=== PATIENT | male | born 1985 | race Caucasian/White ===

== ENCOUNTER 2017-01-04 09:49 | Emergency (ER) | payer SELFPAY ==
[~2017-01-04] VITALS: Ht 182.9 cm; Wt 121.0 kg
[2017-01-04 11:08] LABS: HEMATOCRIT 49.3 % (39.0-50.0); HEMOGLOBIN 16.3 g/dl (14.0-18.0); IMMATURE GRANULOCYTES 0.6 % (0.0-1.0); MEAN CELL VOLUME 88.4 fL CALC (80.0-100.0); MEAN CORPUSCULAR HGB 29.2 pG CALC (26.0-32.0); MEAN CORPUSCULAR HGB CONC 33.1 g/L CALC (32.0-36.0); NEUT# 6.05 thou/uL (1.82-7.42); RED BLOOD COUNT 5.58 mill/uL (4.70-6.10); RED CELL DISTRI WIDTH 12.2 % (11.5-15.5)
[2017-01-04 11:23] LABS: ALKALINE PHOSPHATASE 58 u/l (38-126); AMYLASE 41 u/l (30-110); ANION GAP 15 (6-22 (CALC)); BILIRUBIN, TOTAL 0.5 mg/dL (0.0-1.4); BUN 9 mg/dL (9-20); BUN/CREATININE RATIO 12 (12-20 (CALC)); CALCIUM 9.5 mg/dL (8.4-10.2); CARBON DIOXIDE 25 mmol/l (22-30); CHLORIDE 108 mmol/l (95-108); CREATININE 0.8 mg/dL (0.7-1.3); GFR > 60 ML/MIN (>=60 (CALC)); GFR FOR AFR.AMER. > 60 ML/MIN (>=60 (CALC)); GLUCOSE 96 mg/dL (75-110); LIPASE 100 u/l (23-300); POTASSIUM 4.5 mmol/l (3.5-5.1); SGOT/AST 22 u/l (17-59); SGPT/ALT 39 u/l (21-72); SODIUM 144 mmol/l (137-146); TOTAL PROTEIN 6.8 g/dL (6.3-8.2)
[2017-01-04 13:12] LABS: URINE BILIRUBIN - DIPSTICK NEGATIVE (NEGATIVE); URINE BLOOD DIPSTICK TRACE-LYSED (NEGATIVE); URINE COLOR YELLOW; URINE GLUCOSE - DIPSTICK NEGATIVE (NEGATIVE); URINE KETONE NEGATIVE (NEGATIVE); URINE LEUK ESTERASE NEGATIVE (NEGATIVE); URINE NITRITE - DIPSTICK NEGATIVE (Negative); URINE PROTEIN - DIPSTICK NEGATIVE (NEG-TRACE); URINE SPECIFIC GRAVITY 1.025; URINE UROBILINOGEN - DIPSTICK 0.2 E.U./dL (0.2)
[2017-01-04 13:13] LABS: URINE CLARITY CLEAR
[2017-01-04] MEDS ORDERED: ZOFRAN ODT4 MG PO (13:24)
[2017-01-04 13:42] VITALS: BP 189/91
== END 2017-01-04 13:56 | disposition home or self-care (01) | DRG 392 ==
LOC: ED 09:49
PROVIDERS: Emergency Medicine
DX: R10.31 Right lower quadrant pain (principal); R11.2 Nausea with vomiting, unspecified

== ENCOUNTER 2017-01-19 08:05 | Emergency (ER) | payer SELFPAY ==
[~2017-01-19] VITALS: Ht 185.4 cm; Wt 123.0 kg
[~2017-01-19 08:05] MED LIST: ZOFRAN ODT4 MG PO
[2017-01-19] MEDS ORDERED: MOTRIN800 MG PO (08:53)
[2017-01-19] MEDS ORDERED: LORTAB 5/3255 MG PO (08:53)
[2017-01-19 08:57] VITALS: BP 121/79
== END 2017-01-19 09:05 | disposition home or self-care (01) | DRG 558 ==
LOC: ED 08:05
DX: M77.41 Metatarsalgia, right foot (principal); Z98.890 Other specified postprocedural states

== ENCOUNTER 2017-04-14 06:53 | Emergency (ER) | payer BC ==
[~2017-04-14] VITALS: Ht 185.4 cm; Wt 127.3 kg
[~2017-04-14 06:53] MED LIST changes: +LORTAB 5/3255 MG PO; +MOTRIN800 MG PO
[2017-04-14] MEDS ORDERED: TORADOL PO (08:17)
[2017-04-14] MEDS ORDERED: ZITHROMAX250 MG PO (08:17)
[2017-04-14 08:35] VITALS: BP 121/76
== END 2017-04-14 08:37 | disposition home or self-care (01) | DRG 153 ==
LOC: ED 06:53
DX: J02.9 Acute pharyngitis, unspecified (principal); G71.0 Muscular dystrophy; F17.210 Nicotine dependence, cigarettes, uncomplicated